=== PATIENT | male | born 1975 | race Caucasian/White ===

== ENCOUNTER 2016-12-17 23:38 | Emergency (ER) | payer MEDICAID ==
[~2016-12-17] VITALS: Ht 170.2 cm; Wt 111.6 kg
[2016-12-18 08:44] VITALS: BP 115/81
[2016-12-18] MEDS ORDERED: KETOROLAC TROMETH 60MG/2ML VIAL IM ONE (09:00)
[2016-12-18] MEDS ORDERED: IBUPROFEN 800 MG TAB PO ONE (09:15)
== END 2016-12-18 09:22 | disposition home or self-care (01) ==
LOC: ER 23:40
DX: K04.7 Periapical abscess without sinus (principal); H91.90 Unspecified hearing loss, unspecified ear